=== PATIENT | female | born 1990 | race Caucasian/White ===

== ENCOUNTER 2021-01-04 07:39 | Inpatient (IN) ==
[2021-01-04] MEDS ORDERED: OXYTOCIN 30 UNITS/500 ML BAG IV PRN ×2 (08:07→23:48)
[2021-01-04] MEDS ORDERED: DINOPROSTONE 10 MG INSERT PV ONE (08:07)
--- NOTE | 2021-01-04 08:53 | History & Physical Report ---
Date of Service January 04, 2021 Assessment & Plan (1) Post-dates : Plan: Patient is a 30-year-old G1, P0 at 41 weeks and 2 days of gestation, induction of labor for postdates, Vital signs stable, heart rate reassuring, GBS negative, Cervix unfavorable, Plan to admit, IV, cervical ripening with prostaglandin/Cervidil, Discussed what to expect during induction of labor, all questions were answered. (2) Rh negative status during : (3) Two vessel cord: Admission and Anticipated Discharge Date Admission Date: January 04, 2021 History of Present Illness Primary Care Provider: Caron Anderson DO Patient is a 30-year-old G1, P0 at 41 weeks and 2 days of gestation who is presenting today for scheduled induction of labor for postdates. She has no complaints. She denies contractions, leakage of fluid, vaginal bleeding. And she reports good movements. Her has been uncomplicated, GBS is negative. Rh-, received RhoGam. Two-vessel cord, growth ultrasounds were normal. No COVID-19 symptoms, she has received 2 doses of vaccines. She denies any medical problems, surgeries, medication use, smoking, alcohol or drug use. she denies any history of STDs including genital herpes, chlamydia, gonorrhea. Allergies Allergy/AdvReac Type Severity Reaction Status Date / Time No Known Allergies Allergy Unknown Verified 05/08/10 20:06 Home Medications Medication Instructions Recorded Confirmed Type Control Pills 1 tab PO DAILY #0 05/08/10 History Patient History Social History Smoking Status: Never smoker Hx Alcohol Use: No Hx Substance Use: No Preferred Language: Maltese Communication Ability: Effective Beliefs That Will Affect Care: None marital status: Current Living Situation: Spouse Other Information That Helps Us Care for You: No Feels Safe at Home: Yes Safety Concerns: Feels Safe At This Time Assistive Devices: None Review of Systems as per Subjective / HPI Physical Exam Constitutional: well developed and well nourished Gastrointestinal (Abdomen): Inspection/Auscultation: abdomen normal to inspection and + abdomen distended (Gravid, Charbel 7 to 8 pounds.) Genitourinary: normal external appearance OB Exam Abdomen: + vertex Manual OB Exam: + cervical dilation 2 cm, + cervical effacement 30% and + station -2 OB Exam Monitor Tracing: + external uterine monitor used and + category I Results & Data ([facility]) Vital Signs (Past 12 Hours) Vital Signs Temp Pulse Resp BP 01/04/21 08:31 36.8 C 20 01/04/21 07:55 65 108/61 Laboratory Results Lab Results 01/04/21 01/04/21 Range/Units 08:22 08:22 COVID-19 Eval Order Covid19 [facility] SARS-CoV-2, RNA, NAAT NEGATIVE (NEGATIVE)
[2021-01-04 09:05] LABS: Hematocrit (blood only) 36.6 % (37-47); Hemoglobin 12.9 g/dL (12.0-16.0); Mean Corpuscular Hemoglobin 32.9 pg (25-34); Mean Corpuscular Hgb Conc 35.2 g/dL (32-36); Mean Corpuscular Volume 93.4 fL (80-100); Mean Platelet Volume 12.5 fL (7.4-10.4); Platelet Count 109 K/uL (130-400); Platelet Estimate Decreased (Normal); RDW Coefficient of Variation 12.7 % (11.5-14.5); RDW Standard Deviation 43.1 fL (36.4-46.3); Red Blood Count 3.92 M/uL (4.2-5.4); White Blood Count 6.97 K/uL (4.8-10.8)
[2021-01-04] MEDS ORDERED: BUTORPHANOL TARTRATE 1 MG/ML VIAL IV PRN (09:13)
[2021-01-04] MEDS ORDERED: CALCIUM CARBONATE 500 MG CHEWABLE TAB PO PRN (09:23)
[2021-01-04] MEDS: LACTATED RINGER'S 1,000 ML IV PRN ×4 (12:18→22:40)
[2021-01-04] MEDS ORDERED: ePHEDrine sulfate 50 MG/ML AMP ONE (13:38)
[2021-01-04] MEDS ORDERED: fentaNYL citrate 100 MCG/2 ML VIAL ONE (13:38)
[2021-01-04] MEDS ORDERED: BUPIVACAINE 0.25% 30 ML VIAL ONE (13:38)
[2021-01-04] MEDS ORDERED: fentaNYL 2MCG/ML ROPIVACAINE 1.25MG/ML 100 ML BAG EPI ONE (13:38)
[2021-01-04] MEDS ORDERED: SODIUM CHLORIDE 0.9% INJ 10 ML VIAL ONE (13:38)
--- NOTE | 2021-01-04 13:54 | Anesthesiology Consultation ---
Date of Service January 04, 2021 Assessment & Plan (1) Encounter for pre-operative examination: Chart Review Chart Review: Acceptable Risk for Labor Epidural History Height/Weight Height: 5 ft 5 in Weight: 72.575 kg Allergies Allergy/AdvReac Type Severity Reaction Status Date / Time No Known Allergies Allergy Unknown Verified 05/08/10 20:06 Medications Home Medications Medication Instructions Recorded Confirmed Last Taken Control Pills 1 tab PO DAILY #0 05/08/10 Unknown Active Medications Generic Name Dose Route Start Last Admin Trade Name Freq PRN Reason Stop Dose Admin Lactated Ringer's 1,000 mls @ 150 mls/hr 01/04/21 08:07 01/04/21 13:44 Lr IV 01/06/21 08:06 150 mls/hr .[id number] PRN Administration L&D Protocol Protocol Past Surgical History Surgical History (Updated 01/04/21 @ 13:53 by Neil Henry MD) No significant past surgical history Social History Smoking Status: Never smoker Hx Alcohol Use: No Hx Substance Use: No substance use type: does not use Physical Exam Vital Signs Last Vital Signs Temp 36.5 C 01/04/21 12:10 Pulse 57 L 01/04/21 13:46 Resp 22 01/04/21 13:00 BP 106/52 L 01/04/21 12:35 Pulse Ox 99 01/04/21 13:46 Testing Laboratory Results 01/04/21 08:22
--- NOTE | 2021-01-04 13:59 | Obstetrical Progress Note ---
Date of Service January 04, 2021 Assessment & Plan Admission and Anticipated Discharge Date Admission Date: January 04, 2021 Subjective Late entry from 1320. Patient is reevaluated. Started to have regular contractions which got more often every 1 to 2 minutes for the last hour. Cervidil was removed. Patient has been feeling pain and getting worse and desires pain management. Cervix is 3 cm dilated, 60% effaced, with bulging bag head at -2 station. heart rate is reassuring, category 1. Continue to monitor closely, IV fluid bolus, epidural for pain. All questions were answered. Results & Data ([facility]) Vital Signs (Past 12 Hours) Vital Signs Temp Pulse Resp BP Pulse Ox 01/04/21 13:56 56 L 99 01/04/21 13:51 59 L 98 01/04/21 13:46 57 L 99 01/04/21 13:30 22 01/04/21 13:00 22 01/04/21 12:35 56 L 106/52 L 01/04/21 12:19 56 L 100/56 L 01/04/21 12:15 51 L 89/52 L 01/04/21 12:12 56 L 83/47 L 01/04/21 12:11 59 L 89/43 L 01/04/21 12:10 36.5 C 18 01/04/21 11:00 18 01/04/21 10:30 16 01/04/21 10:28 60 108/57 L 01/04/21 09:30 20 01/04/21 08:31 36.8 C 20 01/04/21 07:55 65 108/61
[2021-01-04] MEDS ORDERED: fentaNYL 2MCG/ML ROPIVACAINE 1.25MG/ML 100 ML BAG EPI PRN (14:33)
[2021-01-04] MEDS ORDERED: ONDANSETRON INJ 2 MG/ML 2 ML VIAL IV PRN (14:33)
[2021-01-04] MEDS ORDERED: ePHEDrine sulfate 50 MG/ML AMP IV PRN (14:33)
[2021-01-04] MEDS ORDERED: NALOXONE HCL 1 MG in SODIUM CHLORIDE 0.9% 1000ML 1,000 ML IV PRN (14:33)
[2021-01-04] MEDS ORDERED: NALOXONE HCL 0.4 MG/1 ML VIAL/CARP IV PRN (14:33)
[2021-01-04] MEDS ORDERED: TERBUTALINE SULFATE 1 MG/ML VIAL SQ ONE (15:23)
--- NOTE | 2021-01-04 17:43 | Obstetrical Progress Note ---
Date of Service January 04, 2021 Assessment & Plan Admission and Anticipated Discharge Date Admission Date: January 04, 2021 Subjective Patient is reevaluated. She has been comfortable heart rate had been category 1 Cervix is 7 cm dilated, 80% effaced head at 0 station with mild coned shape Cabello catheter was entered, drained 500 mL of clear urine. We will continue to monitor closely, Anticipate . Results & Data ([facility]) Vital Signs (Past 12 Hours) Vital Signs Temp Pulse Resp BP Pulse Ox 01/04/21 17:31 63 97 01/04/21 17:26 60 99 01/04/21 17:24 67 107/58 L 01/04/21 17:21 68 98 01/04/21 17:16 55 L 99 01/04/21 17:11 61 98 01/04/21 17:10 63 111/56 L 01/04/21 17:06 66 97 01/04/21 17:01 68 98 01/04/21 16:56 69 98 01/04/21 16:55 68 114/53 L 01/04/21 16:51 68 97 01/04/21 16:46 72 98 01/04/21 16:41 75 98 01/04/21 16:39 74 112/57 L 01/04/21 16:36 77 97 01/04/21 16:31 73 99 01/04/21 16:26 90 98 01/04/21 16:25 79 122/62 01/04/21 16:21 76 99 01/04/21 16:16 74 99 01/04/21 16:11 68 100 01/04/21 16:10 72 117/59 L 01/04/21 16:06 77 99 01/04/21 16:01 70 99 01/04/21 16:00 20 01/04/21 15:56 65 98 01/04/21 15:51 53 L 98 01/04/21 15:46 53 L 99 01/04/21 15:44 50 L 113/61 01/04/21 15:41 52 L 98 01/04/21 15:36 52 L 99 01/04/21 15:31 51 L 99 01/04/21 15:30 20 01/04/21 15:29 52 L 113/67 01/04/21 15:26 56 L 99 01/04/21 15:25 53 L 112/59 L 01/04/21 15:21 57 L 99 01/04/21 15:19 52 L 110/68 01/04/21 15:16 54 L 98 01/04/21 15:13 57 L 110/57 L 01/04/21 15:11 58 L 98 01/04/21 15:09 56 L 112/58 L 01/04/21 15:06 57 L 97 01/04/21 15:04 57 L 107/65 01/04/21 15:01 59 L 97 01/04/21 15:00 36.9 C 20 01/04/21 14:58 57 L 115/60 01/04/21 14:56 63 112/55 L 98 01/04/21 14:54 56 L 115/59 L 01/04/21 14:52 57 L 111/62 01/04/21 14:51 60 98 01/04/21 14:50 60 105/60 01/04/21 14:48 59 L 112/61 01/04/21 14:46 63 110/62 99 01/04/21 14:44 59 L 110/56 L 01/04/21 14:42 59 L 111/56 L 01/04/21 14:41 61 97 01/04/21 14:40 59 L 116/58 L 01/04/21 14:38 63 111/57 L 01/04/21 14:36 63 111/59 L 97 01/04/21 14:34 55 L 111/59 L 01/04/21 14:32 58 L 113/58 L 01/04/21 14:31 59 L 97 01/04/21 14:30 60 108/58 L 01/04/21 14:28 62 120/58 L 01/04/21 14:26 54 L 114/59 L 97 01/04/21 14:24 53 L 118/60 01/04/21 14:23 53 L 125/68 01/04/21 14:21 58 L 99 01/04/21 14:18 55 L 122/64 01/04/21 14:16 55 L 100 01/04/21 14:15 36.9 C 20 01/04/21 14:11 52 L 100 01/04/21 14:06 57 L 100 01/04/21 14:01 54 L 100 01/04/21 14:00 20 01/04/21 13:56 56 L 99 01/04/21 13:51 59 L 98 01/04/21 13:46 57 L 99 01/04/21 13:30 22 01/04/21 13:00 22 01/04/21 12:35 56 L 106/52 L 01/04/21 12:19 56 L 100/56 L 01/04/21 12:15 51 L 89/52 L 01/04/21 12:12 56 L 83/47 L 01/04/21 12:11 59 L 89/43 L 01/04/21 12:10 36.5 C 18 01/04/21 11:00 18 01/04/21 10:30 16 01/04/21 10:28 60 108/57 L 01/04/21 09:30 20 01/04/21 08:31 36.8 C 20 01/04/21 07:55 65 108/61
--- NOTE | 2021-01-04 19:48 | Obstetrical Progress Note ---
Date of Service January 04, 2021 Assessment & Plan Admission and Anticipated Discharge Date Admission Date: January 04, 2021 Subjective Patient is seen and examined. Feels well with no pain or pressure. Vaginal exam, 10 cm dilated head at +2 station, patient does not feel any pressure with exam. heart rate category 1. Plan to decrease epidural and have her urge to push, continue to monitor closely, anticipate . Results & Data ([facility]) Vital Signs (Past 12 Hours) Vital Signs Temp Pulse Resp BP Pulse Ox 01/04/21 19:46 55 L 98 01/04/21 19:41 58 L 98 01/04/21 19:39 58 L 125/62 01/04/21 19:36 57 L 98 01/04/21 19:31 57 L 98 01/04/21 19:26 55 L 98 01/04/21 19:25 57 L 117/61 01/04/21 19:21 58 L 98 01/04/21 19:16 55 L 99 01/04/21 19:11 57 L 99 01/04/21 19:10 56 L 120/61 01/04/21 19:06 60 98 01/04/21 19:02 36.8 C 18 01/04/21 19:01 54 L 98 01/04/21 19:00 20 01/04/21 18:56 55 L 98 01/04/21 18:55 54 L 118/63 01/04/21 18:51 56 L 98 01/04/21 18:46 57 L 98 01/04/21 18:41 69 99 01/04/21 18:39 64 111/62 01/04/21 18:36 60 99 01/04/21 18:31 65 98 01/04/21 18:30 18 01/04/21 18:26 66 99 01/04/21 18:24 64 110/60 01/04/21 18:21 61 99 01/04/21 18:16 67 99 01/04/21 18:11 64 97 01/04/21 18:10 68 103/60 01/04/21 18:06 68 99 01/04/21 18:01 68 99 01/04/21 18:00 18 01/04/21 17:56 69 99 01/04/21 17:54 68 105/58 L 01/04/21 17:51 67 98 01/04/21 17:46 64 99 01/04/21 17:41 67 99 01/04/21 17:39 68 120/65 01/04/21 17:36 67 100 01/04/21 17:31 63 97 01/04/21 17:30 20 01/04/21 17:26 60 99 01/04/21 17:24 67 107/58 L 01/04/21 17:21 68 98 01/04/21 17:16 55 L 99 01/04/21 17:11 61 98 01/04/21 17:10 63 111/56 L 01/04/21 17:06 66 97 01/04/21 17:01 68 98 01/04/21 17:00 37.3 C 20 01/04/21 16:56 69 98 01/04/21 16:55 68 114/53 L 01/04/21 16:51 68 97 01/04/21 16:46 72 98 01/04/21 16:41 75 98 01/04/21 16:39 74 112/57 L 01/04/21 16:36 77 97 01/04/21 16:31 73 99 01/04/21 16:30 20 01/04/21 16:26 90 98 01/04/21 16:25 79 122/62 01/04/21 16:21 76 99 01/04/21 16:16 74 99 01/04/21 16:11 68 100 01/04/21 16:10 72 117/59 L 01/04/21 16:06 77 99 01/04/21 16:01 70 99 01/04/21 16:00 20 01/04/21 15:56 65 98 01/04/21 15:51 53 L 98 01/04/21 15:46 53 L 99 01/04/21 15:44 50 L 113/61 01/04/21 15:41 52 L 98 01/04/21 15:36 52 L 99 01/04/21 15:31 51 L 99 01/04/21 15:30 20 01/04/21 15:29 52 L 113/67 01/04/21 15:26 56 L 99 01/04/21 15:25 53 L 112/59 L 01/04/21 15:21 57 L 99 01/04/21 15:19 52 L 110/68 01/04/21 15:16 54 L 98 01/04/21 15:13 57 L 110/57 L 01/04/21 15:11 58 L 98 01/04/21 15:09 56 L 112/58 L 01/04/21 15:06 57 L 97 01/04/21 15:04 57 L 107/65 01/04/21 15:01 59 L 97 01/04/21 15:00 36.9 C 20 01/04/21 14:58 57 L 115/60 01/04/21 14:56 63 112/55 L 98 01/04/21 14:54 56 L 115/59 L 01/04/21 14:52 57 L 111/62 01/04/21 14:51 60 98 01/04/21 14:50 60 105/60 01/04/21 14:48 59 L 112/61 01/04/21 14:46 63 110/62 99 01/04/21 14:44 59 L 110/56 L 01/04/21 14:42 59 L 111/56 L 01/04/21 14:41 61 97 01/04/21 14:40 59 L 116/58 L 01/04/21 14:38 63 111/57 L 01/04/21 14:36 63 111/59 L 97 01/04/21 14:34 55 L 111/59 L 01/04/21 14:32 58 L 113/58 L 01/04/21 14:31 59 L 97 01/04/21 14:30 60 108/58 L 01/04/21 14:28 62 120/58 L 01/04/21 14:26 54 L 114/59 L 97 01/04/21 14:24 53 L 118/60 01/04/21 14:23 53 L 125/68 01/04/21 14:21 58 L 99 01/04/21 14:18 55 L 122/64 01/04/21 14:16 55 L 100 01/04/21 14:15 36.9 C 20 01/04/21 14:11 52 L 100 01/04/21 14:06 57 L 100 01/04/21 14:01 54 L 100 01/04/21 14:00 20 01/04/21 13:56 56 L 99 01/04/21 13:51 59 L 98 01/04/21 13:46 57 L 99 01/04/21 13:30 22 01/04/21 13:00 22 01/04/21 12:35 56 L 106/52 L 01/04/21 12:19 56 L 100/56 L 01/04/21 12:15 51 L 89/52 L 01/04/21 12:12 56 L 83/47 L 01/04/21 12:11 59 L 89/43 L 01/04/21 12:10 36.5 C 18 01/04/21 11:00 18 01/04/21 10:30 16 01/04/21 10:28 60 108/57 L 01/04/21 09:30 20 01/04/21 08:31 36.8 C 20 01/04/21 07:55 65 108/61
[2021-01-04] MEDS ORDERED: MINERAL OIL 30 ML UDC ONE (22:24)
[2021-01-04] MEDS ORDERED: LIDOCAINE 1% LOCAL 20 ML VIAL ONE (23:16)
[2021-01-04] MEDS ORDERED: METHYLERGONOVINE MALEATE 0.2 MG/ML AMP ONE (23:34)
[2021-01-04] MEDS ORDERED: miSOPROStoL 200 MCG TAB PR ONE ×2 (23:40→23:48)
[2021-01-04] MEDS ORDERED: MEASLES, MUMPS & RUBELLA VIRUS VIAL SQ ONE (23:48)
[2021-01-04] MEDS ORDERED: METHYLERGONOVINE MALEATE 0.2 MG/ML AMP IM ONE (23:48)
[2021-01-04] MEDS ORDERED: SUPERCREAM 0.870% 15 GM JAR EXT PRN (23:48)
[2021-01-04] MEDS ORDERED: bisacodyL 10 MG SUPP PR PRN (23:48)
[2021-01-04] MEDS ORDERED: DIPHTHERIA/TETANUS/PERTUSSIS 0.5 ML SYR/VIAL IM ONE (23:48)
[2021-01-04] MEDS ORDERED: HYDROCORTISONE ACETATE 25 MG SUPP PR PRN (23:48)
--- NOTE | 2021-01-05 01:14 | Anesthesia Procedure Note ---
Date of Service January 05, 2021 Anesthesia Post Epidural Note Vital Signs Vital Signs: Temp Pulse Resp BP Pulse Ox 37.1 C 62 16 93/57 L 100 01/04/21 23:43 01/05/21 01:11 01/05/21 00:42 01/05/21 01:11 01/04/21 23:41 Pain Intensity Bilateral Lower Abdomen: Pain Intensity: 0 Notes Mental Status: alert / awake / arousable and participated in evaluation Nausea / Vomiting: adequately controlled Pain: adequately controlled Airway Patency, RR, SpO2: stable & adequate BP & HR: stable & adequate Hydration State: stable & adequate Neuraxial Anesthesia: was administered and sensory block is resolving Anesthetic Complications: no major complications apparent Epidural: Removed without complications and With tip intact
[2021-01-05] MEDS: BENZOCAINE 20% AER SPR 82.5 GM CAN EXT PRN ×2 (01:45→02:25)
[2021-01-05] MEDS: IBUPROFEN 600 MG TAB PO PRN ×5 (02:24→23:12)
--- NOTE | 2021-01-05 03:43 | Delivery Summary ---
DATE OF DELIVERY: 01/04/2021. TIME: 11:08 p.m. DETAILS OF DELIVERY: The patient was found to be fully dilated and desired to push. She pushed for about 2 hours and the heart rate was having decelerations after contractions to 80s. Mother was exhausted. Decision was made to apply vacuum assistance during delivery. Head was at +3 station with this partially caput visible with pushes. A catheter was already used to drain the bladder. Anterior fontanelle was at 6 o'clock position. The Kiwi vacuum was applied 2 cm anterior to the posterior fontanelle and then vagina was checked to be free from the vacuum. When the contraction begun it was set to green zone. With the patient pushing, and 1 pull with the Kiwi vacuum, half of the head came out and then vacuum was taken off from the infant's head and then a small right mediolateral episiotomy was opened. With the next push,the head was delivered. I was unable to deliver the anterior shoulder with minimal traction. Posterior shoulder was reachable, Then with my 2 fingers of right hand in infants axilla, the posterior shoulder was delivered with the next push and then anterior shoulder was delivered without difficulty. Baby was handed to the mother where mouth and nose were suctioned. Cord was clamped x2 and cut and the baby was handed off to the waiting pediatric team. Vagina and perineum were checked for lacerations. There was this right mediolateral episiotomy and it was checked to be second-degree, confirmed with a rectal exam. Excellent sphincter tone was noted. There was a first-degree left labial laceration. First the episiotomy was repaired with 2-0 Vicry, starting from vaginal mucosa continued to the perineal body muscles, bulbocavernosus muscles and skin in a subcuticular fashion. Excellent hemostasis was achieved. Then the left labia was repaired with 2-0 Vicryl in a running fashion. The rest of the vagina was intact. Placenta was found to be in the vagina, delivered spontaneous as intact and complete. Uterus was explored and found to be empty. Lower segment was cleared of all clots and debris. Fundus was massaged and became firm. The patient was started on IV oxytocin, given rectal Cytotec and IM Methergine. EBL was 300 mL Bleeding became minimal. Gloves were changed. Vagina was checked to be again hemostatic. Then sponge, needle and instrument count was correct x2. Mom and baby tolerated the procedure well. The baby was a viable male infant, Apgars 8/9, weight is 3702 gr.. No complications happened and I was present during whole procedure. Job ID: [id number] [facility]
[2021-01-05 07:32] LABS: Hematocrit (blood only) 30.1 % (37-47); Hemoglobin 10.5 g/dL (12.0-16.0); Mean Corpuscular Hemoglobin 32.5 pg (25-34); Mean Corpuscular Hgb Conc 34.9 g/dL (32-36); Mean Corpuscular Volume 93.2 fL (80-100); Platelet Count 118 K/uL (130-400); RDW Coefficient of Variation 12.7 % (11.5-14.5); RDW Standard Deviation 43.1 fL (36.4-46.3); Red Blood Count 3.23 M/uL (4.2-5.4); White Blood Count 16.18 K/uL (4.8-10.8)
[2021-01-05 08:10] LABS: Platelet Estimate Decreased (Normal)
[2021-01-05] MEDS: FERROUS SULFATE 325 MG TAB PO SCH (08:35)
[2021-01-05] MEDS: PRENATAL VITAMIN 1 TAB PO SCH (08:36)
[2021-01-05] MEDS: DOCUSATE SODIUM 100 MG CAP PO SCH ×2 (08:36→21:28)
[2021-01-05] MEDS: oxyCODONE/ACETAMINOPHEN 5mg/325mg TAB PO PRN (08:36)
--- NOTE | 2021-01-05 09:46 | Obstetrical Progress Note ---
Date of Service January 05, 2021 Assessment & Plan (1) Normal course: PPD#1 Pt doing well anticipate disch tomorrow Results & Data ([facility]) Vital Signs (Past 12 Hours) Vital Signs Temp Pulse Pulse Pulse Resp BP BP 01/05/21 08:10 36.6 C 50 L 50 L 18 104/61 01/05/21 03:00 36.7 C 47 L 16 101/67 01/05/21 01:41 37.1 C 53 L 18 98/57 L 01/05/21 01:26 50 L 97/54 L 01/05/21 01:11 62 18 93/57 L 01/05/21 00:56 61 99/63 L 01/05/21 00:42 50 L 16 102/55 L 01/05/21 00:27 57 L 16 113/55 L 01/05/21 00:14 73 18 109/51 L 01/04/21 23:56 18 97/51 L 01/04/21 23:43 37.1 C 52 L 18 99/54 L 01/04/21 23:41 51 L 01/04/21 23:36 51 L 01/04/21 23:35 50 L 98/51 L 01/04/21 23:31 56 L 01/04/21 23:26 51 L 01/04/21 23:21 52 L 01/04/21 23:16 54 L 01/04/21 23:11 46 L 01/04/21 23:08 96 H 01/04/21 23:06 88 01/04/21 23:01 72 01/04/21 22:56 45 L 115/54 L 01/04/21 22:55 49 L 01/04/21 22:51 64 01/04/21 22:46 47 L 01/04/21 22:41 48 L 01/04/21 22:40 49 L 111/53 L 01/04/21 22:39 48 L 01/04/21 22:36 45 L 01/04/21 22:31 60 01/04/21 22:26 59 L 01/04/21 22:22 63 01/04/21 22:21 56 L 01/04/21 22:16 51 L 01/04/21 22:11 47 L 01/04/21 22:06 48 L 01/04/21 22:03 20 01/04/21 22:01 46 L 01/04/21 21:58 50 L 01/04/21 21:56 48 L 01/04/21 21:55 45 L 124/65 01/04/21 21:53 56 L 01/04/21 21:51 46 L 01/04/21 21:46 44 L Pulse Ox 01/05/21 08:10 99 01/05/21 03:00 100 01/05/21 01:41 01/05/21 01:26 01/05/21 01:11 01/05/21 00:56 01/05/21 00:42 01/05/21 00:27 01/05/21 00:14 01/04/21 23:56 01/04/21 23:43 01/04/21 23:41 100 01/04/21 23:36 99 01/04/21 23:35 01/04/21 23:31 99 01/04/21 23:26 98 01/04/21 23:21 97 01/04/21 23:16 99 01/04/21 23:11 99 01/04/21 23:08 90 01/04/21 23:06 100 01/04/21 23:01 100 01/04/21 22:56 100 01/04/21 22:55 90 01/04/21 22:51 100 01/04/21 22:46 100 01/04/21 22:41 98 01/04/21 22:40 01/04/21 22:39 90 01/04/21 22:36 100 01/04/21 22:31 98 01/04/21 22:26 99 01/04/21 22:22 90 01/04/21 22:21 100 01/04/21 22:16 100 01/04/21 22:11 99 01/04/21 22:06 100 01/04/21 22:03 01/04/21 22:01 100 01/04/21 21:58 93 01/04/21 21:56 100 01/04/21 21:55 01/04/21 21:53 92 01/04/21 21:51 100 01/04/21 21:46 100
[2021-01-05] MEDS: ACETAMINOPHEN 325 MG TAB PO PRN ×2 (15:30→21:28)
[2021-01-05] MEDS ORDERED: bisacodyL 5 MG TABEC PO SCH (20:00)
[2021-01-06 00:53] VITALS: O2SAT 98
[2021-01-06] MEDS: IBUPROFEN 600 MG TAB PO PRN ×2 (06:45→10:59)
[2021-01-06 07:25] LABS: Hematocrit (blood only) 29.2 % (37-47); Hemoglobin 9.9 g/dL (12.0-16.0)
[2021-01-06 07:53] VITALS: TEMP 98.1
[2021-01-06] MEDS: BENZOCAINE 20% AER SPR 82.5 GM CAN EXT PRN (08:36)
[2021-01-06] MEDS: PRENATAL VITAMIN 1 TAB PO SCH (08:36)
[2021-01-06] MEDS: FERROUS SULFATE 325 MG TAB PO SCH (08:36)
[2021-01-06] MEDS: DOCUSATE SODIUM 100 MG CAP PO SCH (08:36)
[2021-01-06] MEDS: ACETAMINOPHEN 325 MG TAB PO PRN (08:37)
[2021-01-06] MEDS: oxyCODONE/ACETAMINOPHEN 5mg/325mg TAB PO PRN (10:59)
--- NOTE | 2021-01-06 12:50 | Obstetrical Progress Note ---
Date of Service January 06, 2021 Assessment & Plan Admission and Anticipated Discharge Date Admission Date: January 04, 2021 Subjective abdomen soft and non tender no calf tenderness ambulating well vaginal bleeding scant hgb 9.9 Results & Data ([facility]) Vital Signs (Past 12 Hours) Vital Signs Temp Pulse Pulse Resp BP BP Pulse Ox 01/06/21 09:09 36.7 C 53 L 16 98/57 L 98 01/06/21 07:53 36.7 C 54 L 16 92/54 L 01/06/21 03:00 36.5 C 48 L 18 92/49 L
[2021-01-06 13:12] VITALS: BP 92/54; PULSE 54
--- NOTE | 2021-01-14 09:28 | Discharge Summary (DS) ---
DATE OF ADMISSION: 01/04/2021. DATE OF DISCHARGE: 01/06/2021. DETAILS OF ADMISSION: Patient is a 30-year-old G1, P0 at 41 weeks and 2 days of gestation. She was admitted on 01/04/2021 for induction of labor for postdates. Her vital signs were stable. heart rate was reassuring. GBS was negative. Her cervix was unfavorable. She was admitted, received Cervidil for cervical ripening. She had contractions after Cervidil was placed and she was progressed to full dilatation. She was labored down for a little bit and then she started to feel pressure and wanted to push. She pushed for about 2 hours with excellent efforts. Head was at +3 station and the caput was visible partially with pushes. Heart rate was having decelerations to 80s after some contractions. Mother was exhausted. She was not able to push longer. She asked for a vacuum extraction. The bladder was drained with a catheter. The Kiwi vacuum was placed 2 cm front of posterior fontanelle. With the patient pushing and with 1 pull head started and then vacuum was taken off, and a right mediolateral episiotomy was opened and then the baby was delivered without difficulty and then baby was crying and moving vigorously. Apgars were 8/9, weight was 3702 grams and see dictated delivery note for details. On period, the patient was doing well, vital signs stable, afebrile. Urine output was good. Physical exam was unremarkable. She was ambulating, tolerating regular diet and on day #2, the patient was doing well, vital signs stable, afebrile. Baby was doing well. Her hemoglobin was 9.9. The patient desired to be discharged home on postoperative day #2. Discharge instructions were given. Prescriptions were written for pain and iron. She is to be seen in the office in 2-3 weeks. All questions were answered. Job ID: [id number] [facility]
== END 2021-01-06 14:28 | disposition home or self-care (01) | DRG 807 ==
LOC: 4S1 07:39 → 4S2 01-05 01:55
DX: Z67.91 Unspecified blood type, Rh negative; O75.81 Maternal exhaustion complicating labor and delivery; O48.0 Post-term pregnancy; O36.8330 Maternal care for abnormalities of the fetal heart rate or rhythm, third trimester, not applicable or unspecified; O70.1 Second degree perineal laceration during delivery; Z37.0 Single live birth; Z3A.41 41 weeks gestation of pregnancy; O69.89X0 Labor and delivery complicated by other cord complications, not applicable or unspecified